=== PATIENT | male | born 1965 | race Caucasian/White ===

== ENCOUNTER → 2021-06-02 | Outpatient (CLI) | payer BC, OTHER ==
[~2021-06-02] MED LIST: BACL-19 PO; DOCU-131 PO; FURO40TA6 PO; LOSA50TA14 PO; No meds per pt.; OXYC5TAB98 PO; PANT40TA3 PO; POTA10TA11 PO; SPIR25TA PO; VISIPAQUE 320 MG/ML, 150ML BOTTLE ONE; WARF5TAB2 PO
== END | disposition home or self-care (01) ==
LOC: CVU 09:16
PROVIDERS: ATTEND Internal Medicine Cardiovascular Disease
DX: Z01.810 Encounter for preprocedural cardiovascular examination (principal); I35.0 Nonrheumatic aortic (valve) stenosis; R06.02 Shortness of breath; I65.23 Occlusion and stenosis of bilateral carotid arteries; I10 Essential (primary) hypertension
CPT/HCPCS: 71275; 74174; 93880; Q9967

== ENCOUNTER 2021-06-14 06:00 | Inpatient (IN) | payer BC ==
[~2021-06-14] VITALS: Ht 185.4 cm; Wt 91.8 kg
[~2021-06-14 06:00] MED LIST changes: -VISIPAQUE 320 MG/ML, 150ML BOTTLE ONE
[2021-06-14] MEDS ORDERED: ONDANSETRON 2MG/ML, 2ML IV PRN (06:30)
[2021-06-14] MEDS ORDERED: SODIUM CHLORIDE 0.9% 1,000 ML IV ONE (06:30)
[2021-06-14 06:33] VITALS: BP 160/109
[2021-06-14] MEDS ORDERED: APIX5TAB PO (06:40)
[2021-06-14] MEDS ORDERED: ATOR10TA9 PO (06:43)
[2021-06-14] MEDS ORDERED: FLEC100T PO (06:43)
[2021-06-14] MEDS ORDERED: ESCI10TA10 PO (06:44)
[2021-06-14] MEDS ORDERED: LOSA25TA25 PO (06:44)
[2021-06-14] MEDS ORDERED: METO25TA2 PO (06:45)
[2021-06-14] MEDS ORDERED: VITAMIN D (06:46)
[2021-06-14 06:53] LABS: BASOPHILS % (AUTO) 1 % (0-1); EOSINOPHILS % (AUTO) 2 % (1-7); LYMPHOCYTES % (AUTO) 25 % (22-44); MEAN CORPUSCULAR HGB CONC 33.8 g/dL (33.2-36.2); MEAN PLATELET VOLUME 9.4 fL (7.4-10.4); MONOCYTES % (AUTO) 9 % (2-9); NEUTROPHILS % (AUTO) 64 % (42-75); PLATELET COUNT 112 x10^3/uL (130-400); RED BLOOD COUNT 4.43 x10^6/uL (4.38-5.82); RED CELL DISTRIBUTION WIDTH 13.6 % (9.4-14.8)
[2021-06-14] MEDS ORDERED: PHENYLEPHRINE 10 MG/ML ONE (07:02)
[2021-06-14] MEDS ORDERED: FENTANYL PF 250 MCG/5ML ONE (07:02)
[2021-06-14 07:04] LABS: ALANINE AMINOTRANSFERASE 53 U/L (12-78); ALBUMIN 3.5 g/dL (3.4-5.0); ANION GAP 6 mmol/L (5-15); CALCIUM 9.6 mg/dL (8.5-10.1); CHLORIDE 108 mmol/L (98-107); CREATININE 0.67 mg/dL (0.7-1.3)
[2021-06-14 07:07] LABS: ALKALINE PHOSPHATASE 116 U/L (45-117); BILIRUBIN,TOTAL 0.9 mg/dL (0.2-1.0); TOTAL PROTEIN 7.3 g/dL (6.4-8.2)
[2021-06-14] MEDS ORDERED: HEPARIN 1,000 UNITS/ML, 10ML ONE ×2 (07:07)
[2021-06-14] MEDS ORDERED: ROCURONIUM 10MG/ML,5ML ONE (07:08)
[2021-06-14] MEDS ORDERED: CEFAZOLIN 1,000 MG ONE (07:08)
[2021-06-14] MEDS ORDERED: SUCCINYLCHOLINE 20 MG/ML, 10ML ONE (07:10)
[2021-06-14] MEDS ORDERED: PROTAMINE SULFATE 10 MG/ML, 5ML ONE (07:11)
[2021-06-14 07:28] LABS: INTERNATIONAL NORMALIZED RATIO 1.1 (0.93-1.1); PROTHROMBIN TIME 11.7 Seconds (9.6-11.5)
[2021-06-14] MEDS ORDERED: LABETALOL 5MG/ML, 20ML IVPush PRN (09:30)
[2021-06-14] MEDS ORDERED: hydrALAzine 20 MG/ML, 1ML IVPush PRN (09:30)
[2021-06-14] MEDS ORDERED: ACETAMINOPHEN 325 MG TABLET PO PRN (09:30)
[2021-06-14] MEDS ORDERED: ATORVASTATIN 10 MG TABLET PO SCH (21:00)
[2021-06-14 21:38] VITALS: BP 135/90
[2021-06-14] MEDS: APIXABAN 5 MG TABLET PO SCH (21:41)
[2021-06-14] MEDS: FLECAINIDE 100MG TABLET PO SCH (21:41)
[2021-06-15 00:34] VITALS: BP 126/78
[2021-06-15 05:00] LABS: BASOPHILS % (AUTO) 0 % (0-1); EOSINOPHILS % (AUTO) 0 % (1-7); LYMPHOCYTES % (AUTO) 7 % (22-44); MEAN CORPUSCULAR HEMOGLOBIN 32.9 pg (27.5-34.5); MEAN CORPUSCULAR HGB CONC 33.4 g/dL (33.2-36.2); MEAN PLATELET VOLUME 9.7 fL (7.4-10.4); MONOCYTES % (AUTO) 6 % (2-9); NEUTROPHILS % (AUTO) 87 % (42-75); PLATELET COUNT 89 x10^3/uL (130-400); RED BLOOD COUNT 4.07 x10^6/uL (4.38-5.82); RED CELL DISTRIBUTION WIDTH 13.7 % (9.4-14.8)
[2021-06-15 05:12] LABS: ANION GAP 5 mmol/L (5-15); CALCIUM 8.9 mg/dL (8.5-10.1); CHLORIDE 105 mmol/L (98-107); CREATININE 0.73 mg/dL (0.7-1.3)
[2021-06-15 07:25] VITALS: BP 141/89
[2021-06-15] MEDS: FLECAINIDE 100MG TABLET PO SCH (08:40)
[2021-06-15] MEDS: APIXABAN 5 MG TABLET PO SCH (08:41)
[2021-06-15] MEDS ORDERED: LOSARTAN 25MG TABLET PO SCH (09:00)
[2021-06-15] MEDS ORDERED: METOPROLOL SUCCINATE 25 MG TAB.ER.24H PO SCH (09:00)
[2021-06-15] MEDS ORDERED: ESCITALOPRAM 10MG TABLET PO SCH (09:00)
[2021-06-15 13:10] VITALS: BP 110/76
== END 2021-06-15 15:30 | disposition home or self-care (01) | DRG 266 ==
LOC: ORIP 06:00 → 5SO 10:22
PROVIDERS: ADMIT Internal Medicine Cardiovascular Disease; ATTEND Internal Medicine Cardiovascular Disease
PROC: B24BZZ4 Ultrasonography of Heart with Aorta, Transesophageal (ICD-10-PCS; 2021-06-14)
PROC: 02RF38Z Replacement of Aortic Valve with Zooplastic Tissue, Percutaneous Approach (ICD-10-PCS; principal; 2021-06-14 07:30)
DX: I35.0 Nonrheumatic aortic (valve) stenosis (principal); I50.33 Acute on chronic diastolic (congestive) heart failure; D68.69 Other thrombophilia; D69.6 Thrombocytopenia, unspecified; D72.829 Elevated white blood cell count, unspecified; I11.0 Hypertensive heart disease with heart failure; I44.0 Atrioventricular block, first degree; I48.91 Unspecified atrial fibrillation; R00.1 Bradycardia, unspecified; I10 Essential (primary) hypertension; Z20.822 Contact with and (suspected) exposure to COVID-19; Z00.6 Encounter for examination for normal comparison and control in clinical research program
CPT/HCPCS: 33361; 36415; 76937; 80048; 80053; 85025; 85347; 85610; 86850; 86900; 86923; 87635; 93005; 93306; 93355; 93356; C1760; C1769; C1894; G0378; J0690; J1644; J2720; J3010; J0330; J2370; Q9967

== ENCOUNTER 2021-07-15 10:04 | Outpatient (CLI) | payer BC ==
[~2021-07-15 10:04] MED LIST changes: +APIX5TAB PO; +ATOR10TA9 PO; +ESCI10TA10 PO; +FLEC100T PO; +LOSA25TA25 PO; +METO25TA2 PO; +VITAMIN D
== END 2021-07-15 23:59 | disposition home or self-care (01) ==
LOC: CVU 10:04
PROVIDERS: ATTEND Internal Medicine Cardiovascular Disease
DX: Z01.810 Encounter for preprocedural cardiovascular examination (principal); I65.29 Occlusion and stenosis of unspecified carotid artery; I34.0 Nonrheumatic mitral (valve) insufficiency; R06.02 Shortness of breath; I11.9 Hypertensive heart disease without heart failure; E78.5 Hyperlipidemia, unspecified; Z95.2 Presence of prosthetic heart valve
CPT/HCPCS: 93306; 93356